=== PATIENT | female | born 1960 | race Caucasian/White ===

== ENCOUNTER 2016-05-28 15:56 | Emergency (ER) | payer MEDICARE, MEDICAID ==
[~2016-05-28 15:56] MED LIST: ASPIRIN 32325 MG/TAB PO; ASPIRIN 81M81 MG/TA2 PO; ATIVAN 1MG T1 MG/TAB PO; BENZTROPINE2 MG PO; CALTRATE-600 W600 MG PO; COLACE 100100 MG/CAP PO; COZAAR100 MG PO; IBU400 MG PO; INDERAL 10MG10 MG PO; LEXAPRO 10MG10 MG PO; LOXITANE PO; PROZAC 20MG20 MG PO; SYNTHROID0.075 MG/T PO; TOPROL XL50 MG PO; ZYPREXA 5MG5 MG PO
[2016-05-28 15:57] VITALS: BP 161/87; PULSE 89; TEMP 97
[2016-05-28] MEDS ORDERED: SYNTHROID0.075 MG/T PO (18:01)
[2016-05-28] MEDS ORDERED: ATIVAN 0.50.5 MG/TAB PO (18:02)
[2016-05-28] MEDS ORDERED: PROZAC 20MG20 MG PO (18:03)
[2016-05-28] MEDS ORDERED: PRILOSEC 20MG20 MG PO (18:04)
[2016-05-28] MEDS ORDERED: LOXITANE PO (18:05)
== END 2016-05-28 19:11 | disposition home or self-care (01) ==
LOC: COL.ER 15:56
DX: S09.90XA Unspecified injury of head, initial encounter (principal); S01.01XA Laceration without foreign body of scalp, initial encounter; S00.03XA Contusion of scalp, initial encounter; W03.XXXA Other fall on same level due to collision with another person, initial encounter; Y92.129 Unspecified place in nursing home as the place of occurrence of the external cause; Z23 Encounter for immunization

== ENCOUNTER → 2016-07-10 | Outpatient (CLI) | payer MEDICARE, MEDICAID ==
[~2016-07-10] MED LIST changes: +ATIVAN 0.50.5 MG/TAB PO; +PRILOSEC 20MG20 MG PO
== END ==
LOC: BHSO 08:19
DX: F06.32 Mood disorder due to known physiological condition with major depressive-like episode (principal)

== ENCOUNTER → 2016-08-06 | Outpatient (CLI) | payer MEDICARE, MEDICAID | LOC: BHSO 09:23 | DX: F42.8 Other obsessive-compulsive disorder (principal) ==

== ENCOUNTER → 2016-10-08 | Outpatient (CLI) | payer MEDICARE, MEDICAID | LOC: BHSO 14:59 | DX: F42.8 Other obsessive-compulsive disorder (principal) ==

== ENCOUNTER → 2017-01-28 | Outpatient (CLI) | payer MEDICARE, MEDICAID | LOC: BHSO 10:19 | DX: F43.10 Post-traumatic stress disorder, unspecified (principal) ==

== ENCOUNTER → 2017-04-15 | Outpatient (CLI) | payer MEDICARE, MEDICAID | LOC: BHSO 09:44 | DX: F42.8 Other obsessive-compulsive disorder (principal) ==

== ENCOUNTER → 2017-05-27 | Outpatient (CLI) | payer MEDICARE, MEDICAID | LOC: BHSO 09:42 | DX: F42.8 Other obsessive-compulsive disorder (principal) | CPT/HCPCS: G0463 ==

== ENCOUNTER → 2017-07-08 | Outpatient (CLI) | payer MEDICARE, MEDICAID | LOC: BHSO 09:42 | DX: F42.8 Other obsessive-compulsive disorder (principal) | CPT/HCPCS: G0463 ==